=== PATIENT | female | born 1960 | race Caucasian/White ===

== ENCOUNTER 2017-01-08 21:15 | Emergency (ER) | payer OTHER ==
[2017-01-08] MEDS ORDERED: SULFAMETHOXAZOLE/TRIMETHOPRIM 1 EACH TABLET PO ONE ×2 (21:40→22:10)
[2017-01-08 22:20] VITALS: BP 116/82
--- NOTE | 2017-01-09 04:59 | ED Physician Documentation ---
Female Urogenital Problems - HISTORIAN Historian: patient - HPI Stated Complaint: Urinary complications Chief Complaint: Female Urogenital Problems Additional Information: burning with urination, increased urinary frequency, fever, chills x 1 day Onset: days ago (1) Severity: moderate Location of Pain: other (bladder) Further Comments: no - Associated Symptoms Urinary Symptoms: frequent urination, discomfort w/ urination, burning w/ urination Discharge: denies: vaginal discharge - ROS CONST: none GI/: denies: nausea, vomiting, decreased appetite, diarrhea, black stools, bloody stools CVS/RESP: none EYES/ENT: none NEURO/PSYCH: none MS/SKIN/LYMPH: none - PAST HX Past History: none Other History: none Surgeries/Procedures: none Immunizations: referred to PCP Allergies/Adverse Reactions: Allergies Allergy/AdvReac Type Severity Reaction Status Date / Time No Known Allergies Allergy Unverified 01/08/17 21:36 Home Medications: Ambulatory Orders Medication Instructions Recorded NK [NK] 01/08/17 - SOCIAL HX Smoking History: non-smoker Alcohol Use: none Drug Use: none - FAMILY HX Family History: none - VITAL SIGNS Vital Signs: Vital Signs Temp Pulse Resp BP Pulse Ox 98.2 F 82 16 116/82 98 01/08/17 21:20 01/08/17 22:10 01/08/17 22:10 01/08/17 22:10 01/08/17 22:10 - REVIEWED ASSESSMENTS Nursing Assessment Reviewed: Yes Vitals Reviewed: Yes Progress - Results/Orders Results/Orders: ua ordered - Progress Progress: pt. stable entire time in er, given 2 bactrim ds p.o. x 1 in er Critical Care Note - Critical Care Note Total Time (mins): 0 ED Results Lab/Radiology - Lab Results Lab Results: ua shows bacteria - Radiology Radiology Impressions: none ordered - Orders Orders: ED Orders Category Date Time Status Sulfamethoxazole/Trimethoprim [Bactrim Ds] Med 01/08/17 21:40 Discontinued 2 each PO .STK-MED ONE Sulfamethoxazole/Trimethoprim [Bactrim Ds] Med 01/08/17 22:10 Discontinued 2 each PO NOW ONE Female Urogenital Problems - EXAM General Appearance: alert, moderate distress EENT: eye inspection normal, ENT inspection normal, pharynx normal, no signs of dehydration, KAYLA, no nystagmus, TM's nml Neck: nml inspection Respiratory: no resp. distress, breath sounds nml CVS: reg rate & rhythm, heart sounds normal, equal pulses, no murmur, no gallop , PMI nml, no JVD, no friction rub Abdomen: no distention, nml bowel sounds, tenderness (suprapubic area) Back: non-tender Skin: color nml, no rash, warm,dry Extremities: non-tender, normal range of motion, no evidence of injury, no edema Neuro: oriented X3, CN's nml as tested, motor nml, sensation nml, mood/affect nml, cognition normal Discharge Clincal Impression: UTI (urinary tract infection) Qualifiers: Urinary tract infection type: acute cystitis Hematuria presence: with hematuria Qualified Code(s): N30.01 - Acute cystitis with hematuria Referrals: Primary Doctor,No [Primary Care Provider] - 2 Days Home Medications: Ambulatory Orders NK [NK] 01/08/17 Comments: discharged in stable condition with scripts for bactrim and pyridium Condition: Stable Disposition: 01 HOME, SELF-CARE Decision to Admit: NO Decision Time: 22:05
[2017-01-09 06:31] LABS: APPEARANCE,URINE CLOUDY (CLEAR); COLOR,URINE AMBER (YELLOW); OCCULT BLOOD,URINE 3+ (NEGATIVE); PH URINE 6.5 (5.0 - 8.0); UROBILINOGEN URINE 0.2 Eu (0.2-1.0)
== END 2017-01-08 22:10 | disposition home or self-care (01) ==
LOC: ED 21:15
DX: N30.01 Acute cystitis with hematuria (principal)
CPT/HCPCS: A9270 ×2; 81002; 99283